=== PATIENT | male | born 1980 | race Caucasian/White ===

== ENCOUNTER 2021-08-06 00:23 | Emergency (ER) | payer OTHER ==
[2021-08-06] MEDS ORDERED: Morphine 4 MG/ML VIAL ONE (01:11)
[2021-08-06] MEDS ORDERED: Prochlorperazine 10 MG/2 ML VIAL ONE (01:11)
[2021-08-06] MEDS ORDERED: Lidocaine 1% (PF) 30 ML VIAL ONE (01:11)
[2021-08-06] MEDS ORDERED: cefTRIAXone\\ROCEPHIN 1 GM VIAL ONE ×2 (01:11→01:18)
== END 2021-08-06 01:56 | disposition home or self-care (01) ==
LOC: MADERS 00:23
DX: K04.7 Periapical abscess without sinus (principal); R11.2 Nausea with vomiting, unspecified
CPT/HCPCS: 96372; 99283; J0696; J0780; J2001; J2270